=== PATIENT | female | born 1985 | race Caucasian/White ===

== ENCOUNTER → 2017-03-22 | Outpatient (CLI) | payer MEDICAID ==
[~2017-03-22] MED LIST: ASPI-515 PO; CITA20TA5 PO; MULT-752 PO; PROP10TA PO; QUET50TA PO
== END | disposition home or self-care (01) ==
LOC: STAR 13:04
PROVIDERS: ATTEND Obstetrics & Gynecology
DX: Z30.2 Encounter for sterilization (principal)
CPT/HCPCS: 36415; 84703

== ENCOUNTER 2017-03-30 08:16 | Day surgery (SDC) | payer MEDICAID ==
[2017-03-22 14:09] VITALS: BP 110/78
[~2017-03-30] VITALS: Ht 167.6 cm; Wt 91.8 kg
[2017-03-30] MEDS ORDERED: OXYMETAZOLINE NASAL SPRAY 0.05%, 15ML ONE (08:20)
[2017-03-30] MEDS ORDERED: BUPIVACAINE/PF 0.25% ONE (08:20)
[2017-03-30] MEDS ORDERED: LACTATED RINGERS 1,000 ML IV SCH (09:02)
[2017-03-30 09:22] VITALS: BP 110/78
[2017-03-30 09:27] LABS: HCG UR LOT HCG7030192
[2017-03-30] MEDS ORDERED: LIDOCAINE 1%, 2ML SQ PRN (09:30)
[2017-03-30 09:32] LABS: HCG UR OBC PASS
[2017-03-30] MEDS ORDERED: FENTANYL PF 100 MCG/2ML ONE ×2 (09:36→11:09)
[2017-03-30] MEDS ORDERED: MIDAZOLAM 1 MG/ML, 2ML ONE (09:36)
[2017-03-30] MEDS ORDERED: ROCURONIUM 10 MG/ML ONE ×2 (09:37→10:32)
[2017-03-30] MEDS ORDERED: DEXAMETHASONE 4 MG/ML, 1ML ONE (09:37)
[2017-03-30] MEDS ORDERED: SUCCINYLCHOLINE 20 MG/ML, 10ML ONE (09:37)
[2017-03-30] MEDS ORDERED: ONDANSETRON 2MG/ML, 2ML ONE (09:37)
[2017-03-30] MEDS ORDERED: HYDROmorphone 1 MG/ML, 1ML ONE (09:37)
[2017-03-30] MEDS ORDERED: PROPOFOL 10 MG/ML, 20ML ONE (09:37)
[2017-03-30] MEDS ORDERED: LIDOCAINE GEL 2%, 5ML ONE (10:29)
[2017-03-30] MEDS ORDERED: KETOROLAC 30 MG/1 ML ONE (10:32)
[2017-03-30] MEDS ORDERED: ALBUTEROL SULFATE 200 PUFFS/8.5 GR INH ONE (10:32)
[2017-03-30] MEDS ORDERED: DOXYCYCLINE 100 MG ONE (10:47)
[2017-03-30] MEDS ORDERED: KETOROLAC 30 MG/1 ML IV PRN (11:00)
[2017-03-30] MEDS ORDERED: FENTANYL PF 100 MCG/2ML IV PRN (11:00)
[2017-03-30] MEDS ORDERED: HYDROmorphone 1 MG/ML, 1ML IV PRN (11:00)
[2017-03-30] MEDS ORDERED: HYDROcodone/APAP 7.5-325MG/15ML UDC PO PRN (11:00)
[2017-03-30] MEDS ORDERED: OXYcodone 5 MG/5 ML ORAL.SOL UDC PO PRN (11:00)
[2017-03-30] MEDS ORDERED: MEPERIDINE/PF 25MG/0.5ML IVPush PRN (11:00)
[2017-03-30] MEDS ORDERED: HYDROcodone/APAP 5/325 TABLET ONE (12:46)
[2017-03-30] MEDS ORDERED: HYDROcodone/APAP 5/325 TABLET PO PRN (13:00)
== END 2017-03-30 14:20 ==
LOC: OUT 08:16
PROVIDERS: ATTEND Obstetrics & Gynecology
DX: Z30.2 Encounter for sterilization (principal); N92.4 Excessive bleeding in the premenopausal period; F17.210 Nicotine dependence, cigarettes, uncomplicated
CPT/HCPCS: 58300; 58661; 81025; 88302; 88305; J0330; J1100; J1170; J1885; J2250; J2405; J2704; J3010; J3490; J7120

== ENCOUNTER 2017-05-27 20:51 | Emergency (ER) | payer MEDICAID ==
[~2017-05-27] VITALS: Ht 167.6 cm; Wt 92.8 kg
[2017-05-27 22:49] VITALS: BP 124/80
[2017-05-27] MEDS ORDERED: HYDROmorphone 1 MG/ML, 1ML IV ONE (23:00)
[2017-05-27] MEDS ORDERED: SODIUM CHLORIDE FLUSH 10ML SYR IVF ONE (23:00)
[2017-05-27] MEDS ORDERED: SODIUM CHLORIDE 0.9% 1,000ML IVBOLUS ONE (23:00)
[2017-05-27] MEDS ORDERED: ONDANSETRON 2MG/ML, 2ML IVPush ONE (23:00)
[2017-05-27 23:15] LABS: HEMATOCRIT 39.4 % (34.6-47.8); HEMOGLOBIN 13.3 g/dL (11.7-16.4)
[2017-05-27 23:25] LABS: ASPARTATE AMINO TRANSFERASE 19 U/L (15-37); BLOOD UREA NITROGEN 8 mg/dL (7-18)
[2017-05-27] MEDS ORDERED: ONDANSETRON 2MG/ML, 2ML ONE (23:36)
[2017-05-27] MEDS ORDERED: HYDROmorphone 1 MG/ML, 1ML ONE (23:36)
== END 2017-05-28 01:31 | disposition home or self-care (01) ==
LOC: ED 23:59
DX: R10.32 Left lower quadrant pain (principal); R11.2 Nausea with vomiting, unspecified; N93.8 Other specified abnormal uterine and vaginal bleeding; Z90.49 Acquired absence of other specified parts of digestive tract
CPT/HCPCS: 36415; 76830; 80053; 81003; 84703; 85025; 96361; 96374; 96375; 99285; J1170; J2405; J7030

== ENCOUNTER → 2017-07-18 | Outpatient (CLI) | payer MEDICAID ==
[~2017-07-18] MED LIST changes: +CITA10TA4 PO
== END ==
LOC: STAR 10:49
PROVIDERS: ATTEND Specialist
DX: Z02.9 Encounter for administrative examinations, unspecified (principal)

== ENCOUNTER 2017-07-26 11:31 | Day surgery (SDC) | payer MEDICAID ==
[2017-07-18 11:21] VITALS: BP 114/82
[~2017-07-26] VITALS: Ht 165.1 cm; Wt 90.9 kg
[2017-07-26] MEDS ORDERED: LACTATED RINGERS 1,000 ML IV SCH (11:53)
[2017-07-26 12:19] LABS: HCG UR SG 1.024 (1.003-1.030)
[2017-07-26] MEDS ORDERED: MIDAZOLAM 1 MG/ML, 2ML ONE (13:09)
[2017-07-26] MEDS ORDERED: FENTANYL PF 250 MCG/5ML ONE (13:09)
[2017-07-26] MEDS ORDERED: PROPOFOL 10 MG/ML, 20ML ONE (13:10)
[2017-07-26] MEDS ORDERED: SILVER NITRATE STICK TP ONE (13:31)
[2017-07-26] MEDS ORDERED: EPINEPHRINE 1 MG/ML, 1ML ONE (13:31)
[2017-07-26] MEDS ORDERED: BUPIVACAINE/PF 0.25% ONE (13:31)
[2017-07-26] MEDS ORDERED: ONDANSETRON 2MG/ML, 2ML ONE (13:54)
[2017-07-26] MEDS ORDERED: DEXAMETHASONE 4 MG/ML, 1ML ONE ×2 (13:54)
[2017-07-26] MEDS ORDERED: MEPERIDINE/PF 25MG/0.5ML IVPush PRN (14:00)
[2017-07-26] MEDS ORDERED: HYDROmorphone 1 MG/ML, 1ML IV PRN (14:00)
[2017-07-26] MEDS ORDERED: ACETAMINOPHEN 325 MG TABLET PO PRN (14:00)
[2017-07-26] MEDS ORDERED: OXYcodone 5 MG/5 ML ORAL.SOL UDC PO PRN (14:00)
[2017-07-26] MEDS ORDERED: ONDANSETRON 2MG/ML, 2ML IVPush PRN (14:00)
[2017-07-26] MEDS ORDERED: FENTANYL PF 100 MCG/2ML IV PRN (14:00)
[2017-07-26] MEDS ORDERED: PROMETHAZINE 25 MG/ML, 1ML IV PRN (14:00)
[2017-07-26] MEDS ORDERED: hydrALAzine 20 MG/ML, 1ML IV PRN (14:00)
[2017-07-26] MEDS ORDERED: LABETALOL 5MG/ML, 20ML IV PRN (14:00)
[2017-07-26] MEDS ORDERED: KETOROLAC 30 MG/1 ML ONE (14:15)
[2017-07-26] MEDS ORDERED: OXYcodone 5 MG/5 ML ORAL.SOL UDC ONE (14:55)
[2017-07-26] MEDS ORDERED: ACETAMINOPHEN 650 MG/20.3 ML UDC ONE (14:55)
== END 2017-07-26 17:00 ==
LOC: OUT 11:31
PROVIDERS: ATTEND Specialist
DX: N93.8 Other specified abnormal uterine and vaginal bleeding (principal); N85.8 Other specified noninflammatory disorders of uterus; Z88.6 Allergy status to analgesic agent; Z88.0 Allergy status to penicillin; Z88.8 Allergy status to other drugs, medicaments and biological substances
CPT/HCPCS: 58563; 81025; 88305; J0171; J1100; J1885; J2250; J2405; J2704; J3010; J3490; J7120